=== PATIENT | female | born 1955 | race Caucasian/White ===

== ENCOUNTER 2016-09-18 14:27 | Emergency (ER) | payer BC ==
[~2016-09-18] VITALS: Ht 170.2 cm; Wt 66.2 kg
[~2016-09-18 14:27] MED LIST: PROAIR HFA8.5 GM IH
[2016-09-18 14:53] LABS: HEMATOCRIT 43.1 % (36.0-46.0); MCH 28.7 PG (29.0-34.0); MCHC 32.3 G/DL (30.0-36.0); MCV 88.9 FL (83-99); MEAN PLAT.VOLUME 8.9 uM^3 (9.5-12.4); PLATELET COUNT 263 K/uL (156-360); RBC DIS.WIDTH-CV 13.7 % (11.8-14.6); RBC DIS.WIDTH-SD 44.9 % (39-53); RED BLOOD COUNT 4.85 M/uL (3.80-5.20); WHITE BLOOD COUNT 6.9 K/uL (4.1-10.2)
[2016-09-18 14:57] LABS: CHLORIDE 104 mEq/L (99-109); POTASSIUM 3.9 mEq/L (3.7-5.4)
[2016-09-18 14:58] LABS: SODIUM 140 mEq/L (136-147)
[2016-09-18 14:59] LABS: GLUCOSE 106 mg/dL (70-99)
[2016-09-18 15:00] LABS: PROTHROMBIN TIME 10.2 (9.2-11.2); PTT 32.7 (25-32)
[2016-09-18 15:01] LABS: ANION GAP 12 MEQ/L (2-14)
[2016-09-18 15:03] LABS: GFR ESTIMATE (CALCULATED) > 59 mL/min/
[2016-09-18 15:04] LABS: UREA NITROGEN (BUN) 7 mg/dL (9-23)
[2016-09-18 15:09] LABS: TROP-I INTERPRETATION NEGATIVE; TROPONIN-I < 0.01 ng/mL (0.0-0.30)
[2016-09-18 18:57] VITALS: BP 136/86
== END 2016-09-18 18:57 | disposition home or self-care (01) ==
LOC: EME 14:27
PROVIDERS: Emergency Medicine
DX: I48.91 Unspecified atrial fibrillation (principal); J45.909 Unspecified asthma, uncomplicated; Z86.79 Personal history of other diseases of the circulatory system; R42 Dizziness and giddiness; R41.82 Altered mental status, unspecified; R11.0 Nausea
CPT/HCPCS: 71010; 80048; 81003; 84484; 85027; 85610; 85730; 93005; 99281; 99285; J7030

== ENCOUNTER 2017-11-05 07:09 | Emergency (ER) | payer BC ==
[~2017-11-05] VITALS: Ht 167.6 cm; Wt 63.1 kg
[2017-11-05 07:41] LABS: HEMATOCRIT 37.2 % (36.0-46.0); HEMOGLOBIN 12.5 G/DL (11.9-15.5); MCH 29.6 PG (29.0-34.0); MCHC 33.6 G/DL (30.0-36.0); MCV 87.9 FL (83-99); PLATELET COUNT 300 K/uL (156-360); RBC DIS.WIDTH-CV 13.2 % (11.8-14.6); RBC DIS.WIDTH-SD 42.3 % (39-53); RED BLOOD COUNT 4.23 M/uL (3.80-5.20); WHITE BLOOD COUNT 4.5 K/uL (4.1-10.2)
[2017-11-05 07:58] LABS: CHLORIDE 106 mEq/L (99-109); POTASSIUM 4.4 mEq/L (3.7-5.4); SODIUM 142 mEq/L (136-147)
[2017-11-05 08:00] LABS: GLUCOSE 105 mg/dL (70-99)
[2017-11-05 08:04] LABS: CREATININE 0.7 mg/dL (0.6-1.3); GFR ESTIMATE (CALCULATED) > 59 mL/min/
[2017-11-05 08:05] LABS: TROP-I INTERPRETATION NEGATIVE; TROPONIN-I < 0.01 ng/mL (0.0-0.30); UREA NITROGEN (BUN) 10 mg/dL (9-23)
[2017-11-05 10:07] LABS: TROP-I INTERPRETATION NEGATIVE; TROPONIN-I < 0.01 ng/mL (0.0-0.30)
[2017-11-05 11:05] VITALS: BP 98/62
== END 2017-11-05 11:10 | disposition home or self-care (01) ==
LOC: EME 07:09
PROVIDERS: Emergency Medicine
DX: R07.89 Other chest pain (principal); K21.0 Gastro-esophageal reflux disease with esophagitis; J45.909 Unspecified asthma, uncomplicated
CPT/HCPCS: 71046; 80048; 84484; 85027; 93005; 99281; 99285